=== PATIENT | male | born 1995 | race African-American/Black ===

== ENCOUNTER 2016-05-17 17:50 | Emergency (ER) | payer OTHER ==
[~2016-05-17] VITALS: Ht 185.4 cm; Wt 72.6 kg
--- NOTE | 2016-05-17 19:17 | REP ---
Lumbar spine five views: There are no comparisons. Vertebral body heights, interspacing alignment are normal. Disc spaces are normal. There is no spondylolysis or spondylolisthesis. The pedicles, facets and sacroiliac articulations are unremarkable. Impression: Negative plain film study of the lumbar spine. Signed by Edmond Vee MD 05/17/2016 07:08 P
[2016-05-17] MEDS ORDERED: ZANA4CAP PO (19:25)
[2016-05-17] MEDS ORDERED: IBUP600T26 PO (19:25)
[2016-05-17 19:32] VITALS: BP 131/78
== END 2016-05-17 19:45 | disposition home or self-care (01) ==
LOC: M ED 18:48
DX: M54.5 Low back pain (principal); F17.210 Nicotine dependence, cigarettes, uncomplicated; Z88.0 Allergy status to penicillin

== ENCOUNTER 2016-10-09 19:16 | Emergency (ER) | payer OTHER ==
[~2016-10-09] VITALS: Ht 185.4 cm; Wt 72.7 kg
[~2016-10-09 19:16] MED LIST: IBUP-1022 PO; ZANA4CAP PO
[2016-10-09] MEDS ORDERED: diazePAM 5 MG TAB PO ONE (21:15)
[2016-10-09] MEDS ORDERED: methylPREDNISolone INJ 125 MG/2 ML VIAL (J2930) IV ONE (21:15)
[2016-10-09] MEDS ORDERED: methylPREDNISolone INJ 125 MG/2 ML VIAL (J2930) IM ONE (21:30)
[2016-10-09] MEDS ORDERED: GABA-282 PO (21:57)
[2016-10-09] MEDS ORDERED: VALI5TAB PO (21:57)
[2016-10-09] MEDS ORDERED: PRED20TA PO (21:57)
[2016-10-09 22:12] VITALS: BP 130/79
== END 2016-10-09 22:13 | disposition home or self-care (01) ==
LOC: M ED 19:16
DX: M54.32 Sciatica, left side (principal); F17.210 Nicotine dependence, cigarettes, uncomplicated; Z88.0 Allergy status to penicillin; Z79.899 Other long term (current) drug therapy
CPT/HCPCS: 96372; 99282; J2930

== ENCOUNTER 2016-10-11 11:23 | Emergency (ER) | payer OTHER ==
[~2016-10-11] VITALS: Ht 185.4 cm; Wt 72.7 kg
[~2016-10-11 11:23] MED LIST changes: +GABA-282 PO; +PRED20TA PO; +VALI5TAB PO
[2016-10-11 11:24] VITALS: BP 145/74
[2016-10-11] MEDS ORDERED: KETOROLAC 60 MG/2 ML VIAL (J1885) IM ONE (12:00)
[2016-10-11] MEDS ORDERED: NORCO, ANEXSIA 5/325MG TABLET (HYDROcodone/ACETAMINOPHEN) PO ONE (12:00)
[2016-10-11] MEDS ORDERED: IBUP80TA PO (12:03)
== END 2016-10-11 12:31 | disposition home or self-care (01) ==
LOC: M ED 11:23
DX: M54.42 Lumbago with sciatica, left side (principal); F17.200 Nicotine dependence, unspecified, uncomplicated; Z79.899 Other long term (current) drug therapy; Z88.0 Allergy status to penicillin; Z88.1 Allergy status to other antibiotic agents
CPT/HCPCS: 96372; 99283; J1885

== ENCOUNTER 2017-10-18 12:57 | Emergency (ER) | payer SELFPAY | END 2017-10-18 14:47 | disposition home or self-care (01) | LOC: M ED 12:57 | DX: L72.9 Follicular cyst of the skin and subcutaneous tissue, unspecified (principal); F17.210 Nicotine dependence, cigarettes, uncomplicated; Z88.0 Allergy status to penicillin | CPT/HCPCS: 99282 ==

== ENCOUNTER → 2018-04-07 | Outpatient (REF) | payer OTHER ==
[~2018-04-07] MED LIST changes: -GABA-282 PO; +GABA-843 PO; +IBUP80TA PO
== END ==
LOC: M LAB REF 14:57
PROVIDERS: ATTEND Otolaryngology
DX: L72.3 Sebaceous cyst (principal)